=== PATIENT | female | born 1980 | race Two or more races ===

== ENCOUNTER 2020-01-11 08:08 | Outpatient (CLI) | payer OTHER | END 2020-01-11 08:25 | disposition home or self-care (01) | LOC: MAMO-SONO 08:08 | DX: Z12.31 Encounter for screening mammogram for malignant neoplasm of breast (principal); Z87.898 Personal history of other specified conditions; N76.0 Acute vaginitis ==

== ENCOUNTER 2020-01-25 07:43 | Outpatient (CLI) | payer OTHER | END 2020-01-25 07:45 | disposition home or self-care (01) | LOC: RX STUDY 07:43 | PROVIDERS: ATTEND Internal Medicine Gastroenterology | DX: R13.14 Dysphagia, pharyngoesophageal phase (principal); D51.0 Vitamin B12 deficiency anemia due to intrinsic factor deficiency; K58.0 Irritable bowel syndrome with diarrhea ==

== ENCOUNTER → 2020-08-09 | Outpatient (CLI) | payer OTHER | END | disposition home or self-care (01) | LOC: OFIC 805 13:15 | PROVIDERS: ATTEND Otolaryngology | DX: H93.233 Hyperacusis, bilateral (principal); M26.69 Other specified disorders of temporomandibular joint; H93.8X3 Other specified disorders of ear, bilateral; R09.81 Nasal congestion ==

== ENCOUNTER 2021-05-24 08:00 | Outpatient (CLI) | payer OTHER | END 2021-05-24 08:15 | disposition home or self-care (01) | LOC: PPH VACUNA 08:00 | PROVIDERS: ATTEND Emergency Medicine Pediatric Emergency Medicine | DX: Z23 Encounter for immunization (principal) ==

== ENCOUNTER 2023-11-16 05:48 | Day surgery (SDC) | payer OTHER ==
[~2023-11-16 05:48] MED LIST: COLESTID1 GM PO; VIT D
[2023-11-16] MEDS ORDERED: DEXAMETHASONE SODIUM PHOSPHATE 4 MG/ML VIAL ONE (07:40)
[2023-11-16] MEDS ORDERED: DIPHENHYDRAMINE HCL 50 MG/ML VIAL 1ML ONE (07:57)
[2023-11-16] MEDS ORDERED: DEXAMETHASONE SODIUM PHOSPHATE 4 MG/ML VIAL IV ONE (08:30)
[2023-11-16] MEDS ORDERED: DIPHENHYDRAMINE HCL 50 MG/ML VIAL 1ML IV ONE (08:30)
== END 2023-11-16 11:40 | disposition home or self-care (01) ==
LOC: CIR.AMB 05:48
PROVIDERS: ATTEND Otolaryngology
DX: C73 Malignant neoplasm of thyroid gland (principal); Z88.1 Allergy status to other antibiotic agents; Z91.041 Radiographic dye allergy status

== ENCOUNTER 2025-04-21 14:55 | Outpatient (CLI) | payer OTHER | END 2025-04-21 15:00 | disposition home or self-care (01) | LOC: MRI 14:55 | PROVIDERS: ATTEND Physical Medicine & Rehabilitation | DX: M54.2 Cervicalgia (principal); M54.12 Radiculopathy, cervical region | CPT/HCPCS: 72141 ==